=== PATIENT | male | born 1940 | race Caucasian/White ===

== ENCOUNTER → 2023-10-10 11:22 | Outpatient (REF) | payer MEDICARE, SELFPAY | LOC: RAD 11:22 | PROVIDERS: ATTENDING PHYSICIAN Otolaryngology; FAMILY PHYSICIAN Student in an Organized Health Care Education/Training Program | DX: R20.0 Anesthesia of skin (principal); R13.12 Dysphagia, oropharyngeal phase; R22.1 Localized swelling, mass and lump, neck | CPT/HCPCS: 70491; Q9967 ==

== ENCOUNTER 2023-12-14 19:56 | Emergency (ER) | payer MEDICARE, SELFPAY ==
[2023-12-14 19:58] VITALS: BP 162/92
[2023-12-14 20:30] VITALS: BMI 26.0
[2023-12-14 20:37] VITALS: BP 173/76
--- NOTE | 2023-12-14 20:44 | ED.GENMED ---
Addendum entered and electronically signed by Dave Dutton PA-C 12/18/23 08:29:
Urine culture shows greater than 100,000 colony-forming units of Pseudomonas. Patient was on cefoxitin. Called patient to discuss information however there was no answer. Left message to call back but I did call in a prescription for Cipro 500 mg
twice a day
Original Note:
History of Present Illness
General
Chief Complaint: Flank Pain
Time Seen by Provider: 12/14/23 20:22
History of Present Illness
History of Present Illness:
Patient is a 83-year-old man with history of prior kidney stones, hypertension presenting to the emergency department left-sided flank pain. Patient states that around 4 hours ago he developed left-sided flank pain that radiated to his groin. It
is similar to prior kidney stones. No fevers or chills. No nausea or vomiting. No urinary symptoms. No testicular swelling. No diarrhea. No lightheadedness dizziness. No syncopal events. No pain with defecation.
Phy Exam
Physical Exam
Physical Exam:
GENERAL: in no acute distress
HEENT: normocephalic, extraocular movements intact, moist oral mucosa
NECK: normal inspection
RESPIRATORY: no respiratory distress, clear to auscultation bilaterally
CARDIOVASCULAR: regular rate and rhythm
ABDOMEN/: soft, non-distended, non-tender to palpation, no rebound or guarding, no CVA tenderness
EXTREMITIES: non-tender, no edema/swelling
NEUROLOGIC: awake and alert, moves all extremities
SKIN: warm
Course
Orders/Labs/Results
Orders:
Orders
12/14/23 20:43
Ketorolac [Toradol] 15 mg IV NOW STA
12/14/23 20:44
CT Abd/pel Without Iv Or Oral Urgent
Comment:
Reason For Exam: left flank pain
12/14/23 20:51
Complete Blood Count/With Diff Urgent
12/14/23 20:52
Urinalysis Reflex To Culture Urgent
Date Specimen was Collected: 12/14/23
Time Specimen was Collected: 20:51
Urine Microscopic Reflex Cult Urgent
Urine Culture Urgent
MARCELO Source: U
Specimen Description:
Date Specimen was Collected: 12/14/23
Time Specimen was Collected: 20:51
12/14/23 21:30
Basic Metabolic Panel Urgent
12/14/23 22:22
Cefepime HCl [Maxipime] 2,000 mg IV NOW STA
Abnormal Lab Results
12/14/23 12/14/23 12/14/23
20:51 20:52 21:30
WBC 16.7 H 10^3/uL
(4.8-10.8)
RBC 4.17 L 10^6/uL
(4.70-6.10)
MCV 98.6 H fL
(80.0-94.0)
MCH 34.3 H pg
(27.0-31.0)
Abs Immat Gran (auto) 0.1 H 10^3/uL
(0-0.05)
Absolute Neuts (auto) 13.0 H 10^3/uL
(1.4-6.5)
Absolute Monos (auto) 1.2 H 10^3/uL
(0.1-0.6)
Immature Gran % 0.7 H %
(0-0.5)
Neutrophils % 77.8 H %
(42.2-75.2)
Lymphocytes % 12.2 L %
(20.5-51.1)
BUN 39 H mg/dl
(9-20)
Ur Occult Blood Reflex 4+ A
(Negative)
Leukocyte Esterase Rfl 2+ A
(Negative)
Urine RBC 50-60 A /HPF
(0-2)
Urine WBC (Reflex) >100 A /HPF
(0-5)
Urine Bacteria (Reflex) Many A
(Negative)
12/14/23 20:51
12/14/23 21:30
Vital Signs
Initial and Last Documented VS:
Initial Vital Signs
Temp Pulse Resp BP Pulse Ox
97.7 F 71 18 162/92 98
12/14/23 19:58 12/14/23 19:58 12/14/23 19:58 12/14/23 19:58 12/14/23 19:58
Last Documented Vital Signs
Temp Pulse Resp BP Pulse Ox
97.7 F 71 18 171/72 97
12/14/23 19:58 12/14/23 19:58 12/14/23 19:58 12/14/23 21:00 12/14/23 21:19
MDM/Problems Addressed
Differential Diagnosis Includes:
Patient is a 83-year-old male with history of kidney stones presenting to the emergency department 1 day of left-sided flank pain that radiated to his groin. Vitals here are unremarkable and exam shows a man who is resting comfortably no acute
distress. Differential consists of kidney stone versus UTI. History and exam not consistent with aortic catastrophe such as aneurysmal rupture testicular etiology. Will obtain blood work urine and obtain CT kidney stone protocol. Will give IV
Toradol.
*Critical Care Note
Total Time (30-74mins, 75-104mins- exclusive of procedures): Not Applicable
Update Note
Update Note:
On reevaluation patient resting comfortably. Pain has improved after the Toradol. Blood work does show leukocytosis. Urine does appear infected. CT scan with a renal stone. They are 1 to 2 mm. No ureteral stone. His urine does have some blood
and so he could have passed a stone prior to arrival. He is otherwise well-appearing and is afebrile. After shared decision making we will discharge with antibiotics. Will give first dose of antibiotics here. Will give him urology follow-up.
ED Attending Note
-
Portions of this chart may have been created with voice recognition software.� Occasional wrong word or��sound alike� substitutions may have occurred due to the inherent limitations of voice recognition software.
Discharge Plan
Departure
Patient Disposition: Home (Routine Discharge)
Date of Disposition: 12/14/23
Time of Disposition: 22:21
Patient with high blood pressure during this ER visit?: No
Discharge Problem:
Left renal stone, UTI (urinary tract infection)
Instructions: Flank Pain (DC)
Prescriptions:
New
cefpodoxime 200 mg tablet
200 mg PO BID 7 Days Qty: 14 0RF
No Action
lisinopril 20 MG tablet
20 mg PO DAILY
aspirin 81 MG tablet,delayed release (DR/EC)
81 mg PO DAILY
potassium citrate 10 MEQ tablet extended release
10 meq PO BID
metoprolol tartrate 25 MG tablet
25 mg PO .WITH DINNER
Trubiotics
1 tab PO DAILY
amoxicillin-pot clavulanate 1 TABLET tablet
1 tab PO Q12 Qty: 28 0RF
Patient Comments:
pt no longer takes Augmentin- took back in December as first attempt in treatment per pt
levofloxacin 500 MG tablet
500 mg PO DAILY Qty: 0 0RF
levofloxacin 500 MG/20 ML solution
500 mg PO DAILY Qty: 14 0RF
Patient Comments:
pt only takes Levofloxacin 500mg once daily
Referrals:
UNKNOWN - PT DOES,NOT KNOW [Family Provider] -
Interventions
Interventions:
*Risk Screen - Suicide Last Done: 12/14/23 19:58
*General Assessment Last Done: 12/14/23 19:58
*Neglect/Abuse Screening Last Done: 12/14/23 20:30
*ED COVID-19 Vaccine History Last Done: 12/14/23 20:28
EZ-Lphrgb-Kkhtksrsgh Assessment Last Done: 12/14/23 20:30
ED-Male Genitourinary Assessment Last Done: 12/14/23 20:30
Discharge Date and Time
Print Language: LIBERIAN
[2023-12-14] MEDS: TORADOL 15 MG IV (20:55)
[2023-12-14 21:00] VITALS: BP 171/72
[2023-12-14 21:21] LABS: % Basophils 0.4 % (0-2); % Eosinophils 1.6 % (0-6); % Immature Granulocytes 0.7 % (0-0.5); % Lymphocytes 12.2 % (20.5-51.1); % Monocytes 7.3 % (1.7-9.3); % Neutrophils 77.8 % (42.2-75.2); Absolute Basophils 0.1 10^3/uL (0-0.2); Absolute Eosinophils 0.3 10^3/uL (0-0.7); Absolute Immature Granulocytes 0.1 10^3/uL (0-0.05); Absolute Monocytes 1.2 10^3/uL (0.1-0.6); Hematocrit 41.1 % (39.0-52.0); Hemoglobin 14.3 g/dL (13.0-18.0); Mean Corp Hgb Conc. 34.8 g/dL (33.0-37.0); Mean Corpuscular Hgb 34.3 pg (27.0-31.0); Mean Corpuscular Volume 98.6 fL (80.0-94.0); Mean Platelet Volume 9.8 fL (7.4-10.4); Nucleated Red Blood Cells % 0 % (-); Platelet Count 340 10^3/uL (130-400); Red Blood Cell Count 4.17 10^6/uL (4.70-6.10); Red Cell Dist. Width 12.9 % (11.5-14.5); White Blood Cell Count 16.7 10^3/uL (4.8-10.8)
[2023-12-14 21:39] LABS: Urine Albumin Trace (Neg - Trace); Urine Bilirubin Negative (Negative); Urine Character Slightly Cloudy (Clear); Urine Color Yellow; Urine Glucose Negative (Negative); Urine Ketone Negative (Negative); Urine Leukocyte 2+ (Negative); Urine Nitrite Negative (Negative); Urine Occult Blood 4+ (Negative); Urine Urobilinogen Negative (Neg - 1+)
[2023-12-14 21:52] LABS: Urine Bacteria Many (Negative); Urine Red Blood Cell 50-60 /HPF (0-2); Urine White Cell >100 /HPF (0-5)
[2023-12-14 22:00] VITALS: BP 151/70
[2023-12-14 22:14] LABS: Blood Urea Nitrogen 39 mg/dl (9-20); Calcium 9.5 mg/dl (8.4-10.2); Carbon Dioxide 23 mmol/L (22-30); Chloride 105 mmol/L (98-107); Estimated Creatinine Clearance 46 ml/min; Glucose 87 mg/dl (70-99); Potassium 4.8 mmol/L (3.5-5.1); Sodium 136 mmol/L (135-145); eGFR 59.63
[2023-12-14] MEDS: MAXIPIME 2000 MG IV (22:27)
== END 2023-12-14 22:39 | disposition home or self-care (01) ==
LOC: EMR 19:56
PROVIDERS: EMERGENCY PHYSICIAN Student in an Organized Health Care Education/Training Program
DX: N20.0 Calculus of kidney (principal); N39.0 Urinary tract infection, site not specified; I10 Essential (primary) hypertension; Z87.442 Personal history of urinary calculi
CPT/HCPCS: 99284; 96374; 74176; 80048; 81003; 81015; 85025; 87077; 87086; 87186

== ENCOUNTER 2023-12-18 10:44 | Emergency (ER) | payer MEDICARE, SELFPAY ==
[2023-12-18 10:50] VITALS: BP 191/83
[2023-12-18 11:03] VITALS: BP 195/71
[2023-12-18 11:10] VITALS: BMI 27.1
--- NOTE | 2023-12-18 11:14 | ED.GENMED ---
History of Present Illness
General
Chief Complaint: Male Genito-Urinary Symptoms
Time Seen by Provider: 12/18/23 10:55
History of Present Illness
History of Present Illness:
Patient is a 83-year-old male with history of hypertension, kidney stones, history of prostatitis presenting to the emergency department with scrotal swelling. Patient was here 5 days ago and was diagnosed with a UTI/kidney stone. He states that
the symptoms have improved. However about 4 days ago he developed scrotal swelling and pain. This has progressed. He denies any urinary hesitancy urgency, fevers or chills. No back pain. No issues with bowel movements. This does not feel
similar to his prostate infections. He does state at 1 point he had a UTI he did have a testicular issue but unclear as to what it was. No nausea or vomiting. His pain is about 6 out of 10.
Per chart review patient's prior urine culture did grow Pseudomonas. He is currently on cefpodoxime.
Phy Exam
Physical Exam
Physical Exam:
GENERAL: in no acute distress
HEENT: normocephalic, extraocular movements intact, moist oral mucosa
NECK: normal inspection
RESPIRATORY: no respiratory distress, clear to auscultation bilaterally
CARDIOVASCULAR: regular rate and rhythm
ABDOMEN/: soft, non-distended, non-tender to palpation, no rebound or guarding
exam chaperoned by WALKER Monsalve. Significantly swollen tender hard the left testicle with difficulty obtaining cremasteric reflex with overlying erythema that is spreading to the pubic area. No crepitus. No penile discharge.
EXTREMITIES: non-tender, no edema/swelling
NEUROLOGIC: awake and alert, moves all extremities
SKIN: warm
Course
Orders/Labs/Results
Orders:
Orders
12/18/23 11:04
Scrotum US [US Scrotum] Stat
Comment:
Reason For Exam: concern for torsion vs infection
12/18/23 11:12
Complete Blood Count/With Diff Urgent
Comprehensive Metabolic Panel Urgent
Urinalysis Reflex To Culture Urgent
Date Specimen was Collected: 12/18/23
Time Specimen was Collected: 11:09
12/18/23 13:45
LevoFLOXacin [Levaquin] 500 mg PO NOW STA
Abnormal Lab Results
12/18/23
11:12
WBC 14.2 H 10^3/uL
(4.8-10.8)
RBC 4.20 L 10^6/uL
(4.70-6.10)
MCV 98.1 H fL
(80.0-94.0)
MCH 33.8 H pg
(27.0-31.0)
Abs Immat Gran (auto) 0.3 H 10^3/uL
(0-0.05)
Absolute Neuts (auto) 10.2 H 10^3/uL
(1.4-6.5)
Absolute Monos (auto) 1.2 H 10^3/uL
(0.1-0.6)
Immature Gran % 1.8 H %
(0-0.5)
Lymphocytes % 16.0 L %
(20.5-51.1)
BUN 36 H mg/dl
(9-20)
Glucose 100 H mg/dl
(70-99)
12/18/23 11:12
12/18/23 11:12
Vital Signs
Initial and Last Documented VS:
Initial Vital Signs
Temp Pulse Resp BP Pulse Ox
97.5 F 75 18 191/83 97
12/18/23 10:50 12/18/23 10:50 12/18/23 10:50 12/18/23 10:50 12/18/23 10:50
Last Documented Vital Signs
Temp Pulse Resp BP Pulse Ox
97.5 F 75 18 186/68 96
12/18/23 10:50 12/18/23 10:50 12/18/23 10:50 12/18/23 11:33 12/18/23 11:33
MDM/Problems Addressed
Differential Diagnosis Includes:
Patient is a 83-year-old man with history of kidney stones, chronic prostatitis, hypertension presenting to the emergency department with scrotal swelling that has been ongoing for the past 4 to 5 days. Vitals here notable for being afebrile with a
normal heart rate and blood pressure. Exam does show a left scrotum that is swollen tender and hard with some area of erythema to the pubic area as well. Differential consists of torsion versus orchitis versus epididymitis or cellulitis. Less
likely to be hernia. Exam not consistent with Samantha's gangrene will obtain ultrasound and repeat blood work. Will repeat urine. Patient's antibiotics were changed earlier today by the callback team. I did discuss with on-call urology who
favors epididymoorchitis over torsion given his age and recent UTI but will await ultrasound results. Patient will be taken ultrasound stat.
*Critical Care Note
Total Time (30-74mins, 75-104mins- exclusive of procedures): Not Applicable
Update Note
Update Note:
On reevaluation patient resting comfortably. Lab work is notable for leukocytosis however patient is afebrile Jose Alfredo is overall well-appearing. Urine is not infected. Ultrasound is consistent with the patient no orchitis. Discussed with urology
who is in agreement with outpatient treatment. Will switch his antibiotics to Levaquin. Strict return precautions given. Will discharge at this time.
ED Attending Note
-
Portions of this chart may have been created with voice recognition software.� Occasional wrong word or��sound alike� substitutions may have occurred due to the inherent limitations of voice recognition software.
Discharge Plan
Departure
Patient Disposition: Home (Routine Discharge)
Date of Disposition: 12/18/23
Time of Disposition: 13:45
Patient with high blood pressure during this ER visit?: Yes
Discharge Problem:
Orchitis and epididymitis
Instructions: Epididymitis and orchitis
Prescriptions:
New
levofloxacin 500 mg tablet
500 mg PO DAILY Qty: 9 0RF
Rx Instructions:
Start tomorrow 12/18
No Action
lisinopril 20 MG tablet
20 mg PO DAILY
aspirin 81 MG tablet,delayed release (DR/EC)
81 mg PO DAILY
potassium citrate 10 MEQ tablet extended release
10 meq PO BID
metoprolol tartrate 25 MG tablet
25 mg PO .WITH DINNER
Trubiotics
1 tab PO DAILY
amoxicillin-pot clavulanate 1 TABLET tablet
1 tab PO Q12 Qty: 28 0RF
Patient Comments:
pt no longer takes Augmentin- took back in December as first attempt in treatment per pt
levofloxacin 500 MG tablet
500 mg PO DAILY Qty: 0 0RF
levofloxacin 500 MG/20 ML solution
500 mg PO DAILY Qty: 14 0RF
Patient Comments:
pt only takes Levofloxacin 500mg once daily
cefpodoxime 200 mg tablet
200 mg PO BID 7 Days Qty: 14 0RF
ciprofloxacin HCl [Cipro] 500 mg tablet
500 mg PO BID Qty: 14 0RF
Referrals:
Grace Franks PA-C [Family Provider] -
Activity Restrictions/Additional Instructions:
You were seen in the Emergency Department today for an infection of your testicles. Please take the Levaquin as prescribed. We did give you your first dose here today so you may start taking it tomorrow. Please discontinue the other antibiotic as
discussed. Please ice to scrotum on and off for the next 48 hours and elevate the scrotum. Please call your urologist to schedule a follow-up appointment.
We would like for you to follow up with your primary care physician for further evaluation. If you experience fever, worsening of your symptoms, or develop any other new or concerning symptoms, please return to the Emergency Department immediately.
Please see the attached sheet for additional information.
Interventions
Interventions:
*Risk Screen - Suicide Last Done: 12/18/23 11:10
*General Assessment Last Done: 12/18/23 11:10
*Neglect/Abuse Screening Last Done: 12/18/23 11:10
ED- Fall Risk Assessment Last Done: 12/18/23 11:10
*ED COVID-19 Vaccine History Last Done: 12/18/23 11:10
ED-Male Genitourinary Assessment Last Done: 12/18/23 11:10
Discharge Date and Time
Print Language: MONEGASQUE
[2023-12-18 11:32] LABS: % Basophils 0.4 % (0-2); % Eosinophils 1.1 % (0-6); % Immature Granulocytes 1.8 % (0-0.5); % Monocytes 8.5 % (1.7-9.3); % Neutrophils 72.2 % (42.2-75.2); Absolute Basophils 0.1 10^3/uL (0-0.2); Absolute Eosinophils 0.2 10^3/uL (0-0.7); Absolute Immature Granulocytes 0.3 10^3/uL (0-0.05); Absolute Lymphocytes 2.3 10^3/uL (1.2-3.4); Absolute Monocytes 1.2 10^3/uL (0.1-0.6); Absolute Neutrophils 10.2 10^3/uL (1.4-6.5); Hematocrit 41.2 % (39.0-52.0); Hemoglobin 14.2 g/dL (13.0-18.0); Mean Corp Hgb Conc. 34.5 g/dL (33.0-37.0); Mean Corpuscular Hgb 33.8 pg (27.0-31.0); Mean Corpuscular Volume 98.1 fL (80.0-94.0); Mean Platelet Volume 10.1 fL (7.4-10.4); Nucleated Red Blood Cells % 0 % (-); Platelet Count 348 10^3/uL (130-400); Red Cell Dist. Width 12.7 % (11.5-14.5); White Blood Cell Count 14.2 10^3/uL (4.8-10.8)
[2023-12-18 11:33] VITALS: BP 186/68
[2023-12-18 11:37] LABS: Urine Albumin Negative (Neg - Trace); Urine Bilirubin Negative (Negative); Urine Character Clear (Clear); Urine Color Yellow; Urine Glucose Negative (Negative); Urine Ketone Negative (Negative); Urine Leukocyte Negative (Negative); Urine Nitrite Negative (Negative); Urine Occult Blood Negative (Negative); Urine Urobilinogen Negative (Neg - 1+); Urine pH 6.5 (5.0-9.0)
[2023-12-18 11:45] LABS: ALT (SGPT) 25 U/L (0-50); AST (SGOT) 22 U/L (17-59); Albumin 3.9 g/dl (3.5-5.0); Alkaline Phosphatase 84 U/L (38-126); Blood Urea Nitrogen 36 mg/dl (9-20); Calcium 9.7 mg/dl (8.4-10.2); Carbon Dioxide 25 mmol/L (22-30); Chloride 105 mmol/L (98-107); Estimated Creatinine Clearance 42 ml/min; Glucose 100 mg/dl (70-99); Sodium 139 mmol/L (135-145); Total Bilirubin 0.4 mg/dl (0.2-1.3); Total Protein 6.4 g/dl (6.3-8.2); eGFR 54.17
[2023-12-18] MEDS: LEVAQUIN 500 MG PO (14:01)
== END 2023-12-18 14:23 | disposition home or self-care (01) ==
LOC: EMR 10:44
PROVIDERS: EMERGENCY PHYSICIAN Student in an Organized Health Care Education/Training Program; FAMILY PHYSICIAN Student in an Organized Health Care Education/Training Program
DX: N45.3 Epididymo-orchitis (principal); I10 Essential (primary) hypertension; Z87.440 Personal history of urinary (tract) infections; Z87.442 Personal history of urinary calculi
CPT/HCPCS: 99284; 76870; 80053; 81003; 85025; 93976

== ENCOUNTER → 2024-02-16 08:14 | Outpatient (REF) | payer MEDICARE, SELFPAY | LOC: RAD 08:14 | PROVIDERS: ATTENDING PHYSICIAN Student in an Organized Health Care Education/Training Program | DX: H53.121 Transient visual loss, right eye (principal); Z72.0 Tobacco use | CPT/HCPCS: 93880 ==

== ENCOUNTER → 2024-02-18 08:11 | Outpatient (REF) | payer MEDICARE, SELFPAY | LOC: DHCBC/DCA 08:11 | PROVIDERS: ATTENDING PHYSICIAN Internal Medicine Interventional Cardiology; FAMILY PHYSICIAN Student in an Organized Health Care Education/Training Program | DX: I10 Essential (primary) hypertension (principal); E78.2 Mixed hyperlipidemia; Z82.0 Family history of epilepsy and other diseases of the nervous system; R73.09 Other abnormal glucose; N18.2 Chronic kidney disease, stage 2 (mild) | CPT/HCPCS: 78452; 93017; A9500; J2785 ==

== ENCOUNTER → 2024-03-03 12:44 | Outpatient (REF) | payer MEDICARE, SELFPAY | LOC: RCS 12:44 | PROVIDERS: ATTENDING PHYSICIAN Internal Medicine Interventional Cardiology; FAMILY PHYSICIAN Student in an Organized Health Care Education/Training Program | DX: R06.09 Other forms of dyspnea (principal); I10 Essential (primary) hypertension; E78.2 Mixed hyperlipidemia; Z72.0 Tobacco use; R73.09 Other abnormal glucose; N18.2 Chronic kidney disease, stage 2 (mild); R07.89 Other chest pain | CPT/HCPCS: 93306 ==

== ENCOUNTER → 2025-02-13 11:16 | Outpatient (REF) | payer MEDICARE, SELFPAY | LOC: HWRAD 11:16 | PROVIDERS: ATTENDING PHYSICIAN Specialist; FAMILY PHYSICIAN Physician Assistant | DX: N18.31 Chronic kidney disease, stage 3a (principal); N20.0 Calculus of kidney; E87.20 Acidosis, unspecified; I10 Essential (primary) hypertension | CPT/HCPCS: 76770 ==

== ENCOUNTER → 2025-03-04 11:12 | Outpatient (REF) | payer MEDICARE, SELFPAY | LOC: RCS 11:12 | PROVIDERS: ATTENDING PHYSICIAN Internal Medicine Interventional Cardiology; FAMILY PHYSICIAN Physician Assistant | DX: I34.0 Nonrheumatic mitral (valve) insufficiency (principal) | CPT/HCPCS: 93306 ==